=== PATIENT | male | born 1955 | race Two or more races ===

== ENCOUNTER 2018-08-24 07:59 | Emergency (ER) | payer OTHER ==
[~2018-08-24] VITALS: Ht 172.7 cm; Wt 117.9 kg
[~2018-08-24 07:59] MED LIST: DESPEC-DM TABL1 EACH PO; FLOVENT DISKU250 MCG IH; KETO10TA2 PO; ORPH100T PO; PERCOCET 5/321 UDTAB PO; PERCOCET 5/3251 TAB PO; PREDNISONE20 MG PO; PROMETHAZINE-C120 ML PO; PROVENTIL HFA6.7 GM IH; ZITHROMAX TRI-500 MG PO
[2018-08-24] MEDS ORDERED: NEURONTIN300 MG PO (09:14)
[2018-08-24] MEDS ORDERED: PERCOCET 5-3251 EACH PO (09:23)
== END 2018-08-24 10:21 | disposition home or self-care (01) ==
LOC: ER 07:59
DX: M54.42 Lumbago with sciatica, left side (principal)

== ENCOUNTER 2018-11-28 06:07 | Emergency (ER) | payer OTHER ==
[~2018-11-28] VITALS: Ht 172.7 cm; Wt 127.0 kg
[~2018-11-28 06:07] MED LIST changes: +NEURONTIN300 MG PO; +PERCOCET 5-3251 EACH PO
[2018-11-28] MEDS ORDERED: ZESTRIL5 MG (06:19)
[2018-11-28] MEDS ORDERED: ZEBUTAL 50-3251 EACH (06:20)
[2018-11-28] MEDS ORDERED: STERILE SALINE126 ML NS (07:41)
[2018-11-28] MEDS ORDERED: KETO10TA2 PO (10:14)
[2018-11-28] MEDS ORDERED: NORFLEX100MG PO (10:14)
== END 2018-11-28 10:28 | disposition home or self-care (01) ==
LOC: ER 06:07
DX: R51 Headache (principal); M54.2 Cervicalgia

== ENCOUNTER 2019-07-24 14:24 | Emergency (ER) | payer OTHER ==
[~2019-07-24] VITALS: Ht 175.3 cm; Wt 124.7 kg
[~2019-07-24 14:24] MED LIST changes: +NORFLEX100MG PO; +STERILE SALINE126 ML NS; +ZEBUTAL 50-3251 EACH; +ZESTRIL5 MG
== END 2019-07-24 20:44 | disposition home or self-care (01) ==
LOC: ER 14:24
DX: M25.562 Pain in left knee (principal); M79.662 Pain in left lower leg

== ENCOUNTER 2019-12-05 14:36 | Emergency (ER) | payer OTHER ==
[~2019-12-05] VITALS: Ht 172.7 cm; Wt 124.7 kg
[2019-12-05] MEDS ORDERED: DICLOFENAC SODI75 MG PO (16:12)
== END 2019-12-05 20:51 | disposition home or self-care (01) ==
LOC: ER 14:36
DX: M54.5 Low back pain (principal)

== ENCOUNTER 2020-05-09 08:26 | Emergency (ER) | payer OTHER ==
[~2020-05-09] VITALS: Ht 170.2 cm; Wt 131.5 kg
[~2020-05-09 08:26] MED LIST changes: +DICLOFENAC SODI75 MG PO
== END 2020-05-09 14:31 | disposition home or self-care (01) ==
LOC: ER 08:26
DX: U07.1 COVID-19 (principal); N39.0 Urinary tract infection, site not specified; R31.29 Other microscopic hematuria

== ENCOUNTER 2020-12-05 08:19 | Emergency (ER) | payer OTHER ==
[~2020-12-05] VITALS: Ht 172.7 cm; Wt 136.1 kg
[2020-12-05] MEDS ORDERED: ZESTRIL20 MG PO (08:47)
[2020-12-05] MEDS ORDERED: KEFLEX750 MG PO (13:13)
[2020-12-08] MEDS ORDERED: AMOX-CLAV 500-1 EACH (08:44)
[2020-12-08] MEDS ORDERED: KETO10TA2 PO (10:35)
== END 2020-12-05 13:33 | disposition home or self-care (01) ==
LOC: ER 08:19
DX: J03.90 Acute tonsillitis, unspecified (principal); Z03.818 Encounter for observation for suspected exposure to other biological agents ruled out

== ENCOUNTER → 2020-12-08 | Emergency (ER) | payer OTHER ==
[~2020-12-08] VITALS: Ht 172.7 cm; Wt 136.1 kg
[~2020-12-08] MED LIST changes: +AMOX-CLAV 500-1 EACH; +KEFLEX750 MG PO; +ZESTRIL20 MG PO
== END | disposition home or self-care (01) ==
LOC: ER 08:30
DX: J35.01 Chronic tonsillitis (principal); R07.0 Pain in throat

== ENCOUNTER 2021-02-16 06:06 | Emergency (ER) | payer OTHER ==
[~2021-02-16] VITALS: Ht 172.7 cm; Wt 136.1 kg
[2021-02-16] MEDS ORDERED: PERCOCET 10-321 EACH (06:11)
== END 2021-02-16 06:50 | disposition home or self-care (01) ==
LOC: ER 06:06
DX: M54.5 Low back pain (principal)

== ENCOUNTER 2021-06-08 07:51 | Emergency (ER) | payer OTHER ==
[~2021-06-08] VITALS: Ht 172.7 cm; Wt 136.1 kg
[~2021-06-08 07:51] MED LIST changes: +PERCOCET 10-321 EACH
[2021-06-08] MEDS ORDERED: MOTRIN IB200 M1 (07:59)
[2021-06-08] MEDS ORDERED: DICLOFENAC SOD100 MG PO (11:15)
[2021-06-08] MEDS ORDERED: HORIZANT300 MG PO (11:15)
[2021-06-08] MEDS ORDERED: ULTRAM50 MG PO (11:15)
[2021-06-08] MEDS ORDERED: SKELAXIN800 MG PO (11:15)
== END 2021-06-08 12:02 | disposition home or self-care (01) ==
LOC: ER 07:51
DX: M62.830 Muscle spasm of back (principal); M54.5 Low back pain

== ENCOUNTER 2021-07-09 07:37 | Emergency (ER) | payer OTHER ==
[~2021-07-09] VITALS: Ht 172.7 cm; Wt 136.1 kg
[~2021-07-09 07:37] MED LIST changes: +DICLOFENAC SOD100 MG PO; +HORIZANT300 MG PO; +MOTRIN IB200 M1; +SKELAXIN800 MG PO; +ULTRAM50 MG PO
[2021-07-09] MEDS ORDERED: ZANAFLEX4 M1 PO (08:22)
[2021-07-09] MEDS ORDERED: MOTRIN IB200 M1 (08:23)
[2021-07-09] MEDS ORDERED: TRAMADOL HCL50 MG PO (08:24)
[2021-07-09] MEDS ORDERED: MEDROLPACK PO (12:46)
[2021-07-09] MEDS ORDERED: PEPCID AC20 MG PO (12:46)
[2021-07-09] MEDS ORDERED: NORFLEX100MG PO (12:46)
[2021-07-09] MEDS ORDERED: KETO10TA2 PO (12:46)
[2021-07-09] MEDS ORDERED: INTESTINEX680 M1 PO (12:46)
== END 2021-07-09 12:55 | disposition home or self-care (01) ==
LOC: ER 07:37
DX: M54.59 Other low back pain (principal)

== ENCOUNTER 2022-01-10 07:18 | Emergency (ER) | payer OTHER ==
[~2022-01-10] VITALS: Ht 172.7 cm; Wt 136.1 kg
[~2022-01-10 07:18] MED LIST changes: +INTESTINEX680 M1 PO; +MEDROLPACK PO; +PEPCID AC20 MG PO; +TRAMADOL HCL50 MG PO; +ZANAFLEX4 M1 PO
[2022-01-10] MEDS ORDERED: XARELTO20 MG (07:32)
[2022-01-10] MEDS ORDERED: TYLENOL ARTHRI650 MG (07:34)
[2022-01-10] MEDS ORDERED: VOLTAREN ARTHRI20 GM (07:34)
[2022-01-10] MEDS ORDERED: PERCOCET 5-3251 EACH PO (08:52)
[2022-01-10] MEDS ORDERED: MEDROLPACK PO (08:52)
[2022-01-10] MEDS ORDERED: NORFLEX100MG PO (08:52)
== END 2022-01-10 10:10 | disposition home or self-care (01) ==
LOC: ER 07:18
DX: M54.50 Low back pain, unspecified (principal); I10 Essential (primary) hypertension

== ENCOUNTER 2023-06-28 05:50 | Emergency (ER) | payer OTHER ==
[~2023-06-28] VITALS: Ht 170.2 cm; Wt 131.5 kg
[~2023-06-28 05:50] MED LIST changes: +TYLENOL ARTHRI650 MG; +VOLTAREN ARTHRI20 GM; +XARELTO20 MG
[2023-06-28] MEDS ORDERED: NEURONTIN600 M1 PO (06:09)
[2023-06-28] MEDS ORDERED: IBU800 MG PO (06:09)
[2023-06-28] MEDS ORDERED: DICLOFENAC SODI75 MG PO (08:34)
[2023-06-28] MEDS ORDERED: NORFLEX100MG PO (08:34)
== END 2023-06-28 08:46 | disposition home or self-care (01) ==
LOC: ER 05:51
DX: M54.2 Cervicalgia (principal); I10 Essential (primary) hypertension
CPT/HCPCS: 96372; 99283; J1885; J2360

== ENCOUNTER 2024-11-15 11:29 | Emergency (ER) | payer OTHER ==
[~2024-11-15] VITALS: Ht 172.7 cm; Wt 140.6 kg
[~2024-11-15 11:29] MED LIST changes: +IBU800 MG PO; +NEURONTIN600 M1 PO
[2024-11-15] MEDS ORDERED: ELIQUIS5 MG PO (11:37)
[2024-11-15] MEDS ORDERED: GLUMETZA500 MG PO (11:38)
[2024-11-15] MEDS ORDERED: FUROSEMIDE20 MG PO (11:38)
[2024-11-15] MEDS ORDERED: ATORVASTATIN CA20 MG PO (11:38)
[2024-11-15 12:38] LABS: HEMATOCRIT 42.6 % (39.0-48.0); MEAN CELL VOLUME 88.9 fL (80.0-100.00); MEAN CORPUSCULAR HEMOGLOBIN 29.3 pg (27.00-32.0); MEAN CORPUSCULAR HGB CONC 32.9 g/dl (32.0-36.0); PLATELET COUNT 217 K/uL (150-450); RED CELL DISTRIBUTION WIDTH 14.3 % (11.5-14.5)
[2024-11-15 12:56] LABS: CALCIUM 9.3 mg/dL (8.5-10.1); CREATININE SERUM 0.9 mg/dL (0.70-1.30); GFR 83.67; POTASSIUM 3.9 mEq/L (3.5-5.1)
[2024-11-15 13:07] LABS: INR 1.2; PARTIAL THROMBOPLASTIN TIME 26.8 SECONDS (22.0-34.0); PROTHROMBIN TIME 12.9 SECONDS (9.0-11.5)
[2024-11-15 13:33] LABS: PH,URINE 6.5 (5.0-8.0); URINE APPEARANCE Turbid; URINE BILIRRUBIN Small (NEGATIVE); URINE BLOOD Large; URINE COLOR Orange; URINE GLUCOSE Negative (NEGATIVE); URINE KETONE Negative (NEGATIVE); URINE LEUKOCYTE Moderate; URINE NITRATE Negative; URINE PROTEIN 30 (NEGATIVE)
[2024-11-15 13:36] LABS: URINE BACTERIA 283.9 uL (0.0-1933); URINE EPITHELIAL CELLS 4.1 uL (0.0-38.8); URINE WBC 129.8 uL (0.0-23.2)
[2024-11-15 13:45] LABS: URINE RBC > 10558.9 uL (0.0-20.8)
== END 2024-11-15 14:22 | disposition home or self-care (01) ==
LOC: ER 11:32
PROVIDERS: General Practice
DX: N20.1 Calculus of ureter (principal); R31.9 Hematuria, unspecified; M19.90 Unspecified osteoarthritis, unspecified site; J45.909 Unspecified asthma, uncomplicated; Z87.442 Personal history of urinary calculi; Z98.890 Other specified postprocedural states; K57.30 Diverticulosis of large intestine without perforation or abscess without bleeding; Q63.2 Ectopic kidney